=== PATIENT | male | born 1950 | race African-American/Black ===

== ENCOUNTER 2017-08-04 22:37 | Emergency (ER) | payer OTHER ==
[2017-08-04 22:54] VITALS: TEMP 98; BMI 32.5
--- NOTE | 2017-08-05 00:01 | PDOC ---
History of Present Illness - General History Source: Patient, Family Exam Limitations: No Limitations - History of Present Illness Initial Comments: 08/05/17 00:25 The patient is a 66 year old male, with a significant past medical history of hypertension, DM, prostate cancer, who presents to the emergency department for , evaluation of elevated blood pressure. The patient reports he is currently unemployed but reports to a [facility] clinic. The patient reports that last week he had blood test performed for his DM and while at the clinic was told that his blood pressure is highly elevated. The patient reports he was prescribed medications Cozaar and Glucophage which arrived in the mail yesterday. The patient reports that today prior to arrival he checked his blood pressure and noted the blood pressure was again very high. The patient reports he took his blood pressure medications with minimal relief and so his family advised him to come to the ED for evaluation. He denies any recent fevers, chills, headache or dizziness. He denies any recent nausea, vomit, diarrhea or constipation. He denies any recent chest pain , palpitations or shortness of breath. He denies recent swelling or calf tenderness. Allergies: NKDA, Shrimp <Brigido Chandler - Last Filed: 08/05/17 00:41> <Lida Robledo - Last Filed: 08/05/17 01:28> - General Chief Complaint: Blood Pressure Problem Stated Complaint: BLOOD PRESSURE Time Seen by Provider: 08/04/17 23:33 Past History <Brigido Chandler - Last Filed: 08/05/17 00:41> - Past Medical History COPD: No Diabetes: Yes (2) HTN: Yes - Immunization History Immunization Up to Date: Yes - Suicide/Smoking/Psychosocial Hx Smoking Status: No Smoking History: Never smoked Number of Cigarettes Smoked Daily: 0 Hx Alcohol Use: No <Lida Robledo - Last Filed: 08/05/17 01:28> - Past Medical History Allergies/Adverse Reactions: Allergies Allergy/AdvReac Type Severity Reaction Status Date / Time No Known Drug Allergies Allergy Verified 08/05/17 00:24 SHRIMP Allergy Severe Hives Uncoded 08/04/17 22:46 Home Medications: Ambulatory Orders Aspirin 81 mg PO DAILY 08/04/17 Cholecalciferol (Vitamin D3) [Vitamin D3 -] 800 unit PO DAILY 08/04/17 Losartan Potassium [Cozaar -] 50 mg PO DAILY 08/04/17 Metformin HCl [Glucophage -] 500 mg PO BID 08/04/17 Review of Systems - Review of Systems Comments:: 08/05/17 00:29 GENERAL/CONSTITUTIONAL: No fever or chills. No weakness. HEAD, EYES, EARS, NOSE AND THROAT: No change in vision. No ear pain or discharge. No sore throat. CARDIOVASCULAR: No chest pain or shortness of breath. RESPIRATORY: No cough, wheezing, or hemoptysis. GASTROINTESTINAL: No nausea, vomiting, diarrhea or constipation. GENITOURINARY: No dysuria, frequency, or change in urination. MUSCULOSKELETAL: No joint or muscle swelling or pain. No neck or back pain. SKIN: No rash NEUROLOGIC: No headache, vertigo, loss of consciousness, or change in strength/ sensation. ENDOCRINE: No increased thirst. No abnormal weight change. HEMATOLOGIC/LYMPHATIC: No anemia, easy bleeding, or history of blood clots. ALLERGIC/IMMUNOLOGIC: No hives or skin allergy. <Brigido Chandler - Last Filed: 08/05/17 00:41> *Physical Exam - Vital Signs Last Vital Signs Temp Pulse Resp BP Pulse Ox 98 F 87 18 206/100 98 08/04/17 22:53 08/04/17 22:53 08/04/17 22:53 08/04/17 22:53 08/04/17 22:53 - Physical Exam Comments: 08/05/17 00:29 GENERAL: Awake, alert, and fully oriented, in no acute distress HEAD: No signs of trauma EYES: PERRLA, EOMI, sclera anicteric, conjunctiva clear ENT: Auricles normal inspection, hearing grossly normal, nares patent, oropharynx clear without exudates. Moist mucosa NECK: Normal ROM, supple, no lymphadenopathy, JVD, or masses LUNGS: Breath sounds equal, clear to auscultation bilaterally. No wheezes, and no crackles HEART: Regular rate and rhythm, normal S1 and S2, no murmurs, rubs or gallops ABDOMEN: Soft, nontender, normoactive bowel sounds. No guarding, no rebound. No masses EXTREMITIES: Normal range of motion, no edema. No clubbing or cyanosis. No cords, erythema, or tenderness NEUROLOGICAL: Cranial nerves II through XII grossly intact. Normal speech, normal gait SKIN: Warm, Dry, normal turgor, no rashes or lesions noted. <Brigido Chandler - Last Filed: 08/05/17 00:41> - Vital Signs Last Vital Signs Temp Pulse Resp BP Pulse Ox 98 F 87 18 206/100 98 08/04/17 22:53 08/04/17 22:53 08/04/17 22:53 08/04/17 22:53 08/04/17 22:53 <Lida Robledo - Last Filed: 08/05/17 01:28> ED Treatment Course - LABORATORY CBC & Chemistry Diagram: 08/05/17 00:32 08/05/17 00:32 <Brigido Chandler - Last Filed: 08/05/17 00:41> - LABORATORY CBC & Chemistry Diagram: 08/05/17 00:32 08/05/17 00:32 <Lida Robledo - Last Filed: 08/05/17 01:28> Medical Decision Making - Medical Decision Making 08/05/17 01:03 CBC is normal and CXR is normal. chem and EKG is pending <Lida Robledo - Last Filed: 08/05/17 01:28> *DC/Admit/Observation/Transfer - Attestations Scribe Attestion: 08/05/17 00:30 Documentation prepared by Brigido Chandler, acting as medical collections for Lida Robledo MD. <Brigido Chandler - Last Filed: 08/05/17 00:41> - Discharge Dispostion Admit: No <Lida Robledo - Last Filed: 08/05/17 01:28> Diagnosis at time of Disposition: Hypertensive urgency - Discharge Dispostion Disposition: HOME Condition at time of disposition: Improved - Patient Instructions Printed Discharge Instructions: DI for High Blood Pressure, How to Monitor Your Blood Pressure at Home
[2017-08-05] MEDS ORDERED: NITROGLYCERIN SUBLINGUAL 1/150 0.4 MG TAB SL ONE (00:16)
[2017-08-05] MEDS ORDERED: ASPIRIN 81 MG CHEWABLE TABLETS PO ONE (00:22)
[2017-08-05 00:41] LABS: BASO % 0.7 % (0-2.0); EOS % 8.7 % (0-4.5); HEMOGLOBIN 13.7 GM/dL (11.7-16.9); LYMPH % 35.7 % (8-40); MCH 28.3 pg (25.7-33.7); MCHC 33.3 g/dl (32.0-35.9); MEAN CELL VOLUME 85.1 fl (80-96); MEAN PLT VOLUME 6.8 fl (7.5-11.1); MONO % 6.4 % (3.8-10.2); NEUT % 48.5 % (42.8-82.8); PLATELET COUNT 287 K/MM3 (134-434); RBC 4.82 M/mm3 (4.00-5.60); WHITE BLOOD COUNT 5.1 K/mm3 (4.0-10.0)
[2017-08-05] MEDS ORDERED: ASPIRIN 81 MG CHEWABLE TABLETS ONE (01:03)
[2017-08-05] MEDS ORDERED: NITROGLYCERIN SUBLINGUAL 1/150 0.4 MG TAB ONE (01:04)
[2017-08-05 01:09] LABS: ALBUMIN 4.1 g/dl (3.4-5.0); ANION GAP 7 (8-16); BLOOD UREA NITROGEN 14 mg/dL (7-18); CALCIUM 9.1 mg/dL (8.5-10.1); CHLORIDE 101 mmol/L (98-107); CO2 31 mmol/L (21-32); CREATININE 0.9 mg/dL (0.7-1.3); GLUCOSE,RANDOM 115 mg/dL (74-106); POTASSIUM 4.1 mmol/L (3.5-5.1); SGOT/AST 19 U/L (15-37); SGPT/ALT 29 U/L (12-78); SODIUM 139 mmol/L (136-145)
[2017-08-05 01:12] LABS: URINE APPEARANCE CLEAR; URINE BILIRUBIN NEGATIVE (NEGATIVE); URINE BLOOD 1+ (NEGATIVE); URINE COLOR YELLOW; URINE GLUCOSE (UA) NEGATIVE (NEGATIVE); URINE KETONE NEGATIVE (NEGATIVE); URINE LEUK ESTERASE NEGATIVE (NEGATIVE); URINE NITRITE NEGATIVE (NEGATIVE); URINE PROTEIN NEGATIVE (NEGATIVE); URINE UROBILINOGEN NEGATIVE mg/dL (0.2-1.0)
[2017-08-05 01:13] LABS: ALK PHOS 81 U/L (45-117); BILIRUBIN,TOTAL 0.3 mg/dL (0.2-1.0); TOT PROT 7.6 g/dl (6.4-8.2)
[2017-08-05 01:19] LABS: EPI CELLS RARE /HPF (FEW); URINE MUCUS MODERATE
[2017-08-05 01:20] LABS: INR 0.96 (0.82-1.09); PROTHROMBIN TIME (PATIENT) 10.8 SEC (9.98-11.88)
[2017-08-05 01:59] VITALS: BP 122/91; PULSE 74
== END 2017-08-05 01:38 | disposition home or self-care (01) ==
LOC: JER 22:37
DX: I16.0 Hypertensive urgency (principal); Z79.84 Long term (current) use of oral hypoglycemic drugs; Z85.46 Personal history of malignant neoplasm of prostate
CPT/HCPCS: 36415; 71046-TC; 80053; 81003; 81015; 82550; 84484; 85025; 85610; 99282-25

== ENCOUNTER 2020-12-24 09:25 | Inpatient (IN) | payer OTHER ==
[2020-12-24] MEDS ORDERED: LACTATED RINGERS SOLUTION 1000 ML INFUS.BAG IV ONE ×2 (09:54→11:07)
[2020-12-24 10:31] LABS: VENOUS BASE EXCESS -2.2 mmol/L (-2-2); VENOUS O2 SATURATION 41.9 % (70-80); VENOUS PCO2 56.7 mmHg (38-52); VENOUS PH 7.275 (7.310-7.410)
[2020-12-24 10:37] LABS: BASO % 0.6 % (0-2.0); EOS % 0.1 % (0-4.5); HEMATOCRIT 42.1 % (35.4-49); HEMOGLOBIN 13.9 GM/dL (11.7-16.9); LYMPH % 21.3 % (8-40); MCH 29.1 pg (25.7-33.7); MEAN CELL VOLUME 88.3 fl (80-96); MEAN PLT VOLUME 8.5 fl (7.5-11.1); PLATELET COUNT 266 K/MM3 (134-434); RBC 4.77 M/mm3 (4.00-5.60); RDW 12.8 % (11.9-15.9); WHITE BLOOD COUNT 6.4 K/mm3 (4.0-10.0)
[2020-12-24 10:51] LABS: CHLORIDE 100 mmol/L (98-107); SODIUM 144 mmol/L (136-145)
[2020-12-24 10:53] LABS: CALCIUM 11.5 mg/dL (8.5-10.1)
[2020-12-24 10:54] LABS: ALBUMIN 4.6 g/dl (3.4-5.0); ANION GAP 18 MMOL/L (8-16); BLOOD UREA NITROGEN 38.6 mg/dL (7-18); CO2 26 mmol/L (21-32); MAGNESIUM 3.3 mg/dL (1.8-2.4)
[2020-12-24 10:57] LABS: CREATININE 2.4 mg/dL (0.55-1.3); PHOSPHOROUS 6.8 mg/dL (2.5-4.9); SGOT/AST 19 U/L (15-37); SGPT/ALT 29 U/L (13-61)
[2020-12-24 10:58] LABS: BILIRUBIN,TOTAL 0.5 mg/dL (0.2-1); TOT PROT 8.2 g/dl (6.4-8.2)
[2020-12-24 11:00] LABS: ALK PHOS 81 U/L (45-117)
[2020-12-24 11:05] LABS: GLUCOSE,RANDOM 715 mg/dL (74-106)
[2020-12-24 11:26] LABS: LACTIC ACID 2.8 mmol/L (0.4-2.0)
[2020-12-24 11:29] LABS: EPI CELLS 22 /uL (0-25.1); HYALINE CASTS 2 /uL (0-3.1); URINE APPEARANCE CLEAR; URINE BACTERIA 22 /uL (0-1359); URINE BILIRUBIN NEGATIVE (NEGATIVE); URINE COLOR YELLOW; URINE GLUCOSE (UA) 3+ (NEGATIVE); URINE KETONE 2+ (NEGATIVE); URINE LEUK ESTERASE NEGATIVE (NEGATIVE); URINE NITRITE NEGATIVE (NEGATIVE); URINE PROTEIN NEGATIVE (NEGATIVE); URINE RBC 15 /uL (0-23.9); URINE UROBILINOGEN 0.2 mg/dL (0.2-1.0); URINE WBC 6 /uL (0-25.8)
[2020-12-24] MEDS ORDERED: INSULIN REGULAR HUMAN 100 UNITS/ML *VIAL* (FOR IVP) IVPUSH ONE (11:50)
[2020-12-24] MEDS ORDERED: INSULIN REGULAR 100 UNITS in SODIUM CHLORIDE 99 ML IVPB SCH ×2 (12:00→16:45)
[2020-12-24] MEDS ORDERED: SODIUM CHLORIDE 1,000 ML IV SCH ×2 (12:15→14:07)
[2020-12-24 16:14] VITALS: BMI 29.1
[2020-12-24] MEDS ORDERED: DEXTROSE 50%-WATER - 25 GM/50 ML VIAL IVPUSH PRN (16:31)
[2020-12-24 16:52] LABS: CALCIUM 10.5 mg/dL (8.5-10.1)
[2020-12-24] MEDS: ELECTROLYTE-148 SOLN 1,000 ML IV SCH (16:52)
[2020-12-24 16:53] LABS: BLOOD UREA NITROGEN 32.4 mg/dL (7-18)
[2020-12-24 16:56] LABS: CREATININE 1.9 mg/dL (0.55-1.3)
[2020-12-24 17:01] LABS: LACTIC ACID 2.2 mmol/L (0.4-2.0)
[2020-12-24] MEDS: KCL 10 MEQ IVPB 10 MEQ/100 ML INFUS.BAG IVPB SCH ×2 (17:25→18:06)
[2020-12-24] MEDS ORDERED: INSULIN (LEVEMIR) 100 UNITS/ML UNITS SQ ONE (17:53)
[2020-12-24] MEDS ORDERED: CHLORHEXIDINE GLUCONATE 4% CLEANSER FOR DECOLONIZATION TP SCH (22:00)
[2020-12-24] MEDS: INSULIN SLIDING SCALE (NOVOLOG) 1 VIAL SQ SCH (22:00)
[2020-12-24] MEDS: MUPIROCIN 2% TOPICAL OINTMENT FOR DECOLONIZATION NS SCH (22:01)
[2020-12-24 23:44] LABS: CALCIUM 10.1 mg/dL (8.5-10.1)
[2020-12-24 23:45] LABS: BLOOD UREA NITROGEN 26.4 mg/dL (7-18)
[2020-12-24 23:48] LABS: CREATININE 1.9 mg/dL (0.55-1.3)
[2020-12-25] MEDS: ELECTROLYTE-148 SOLN 1,000 ML IV SCH (00:31)
[2020-12-25] MEDS: INSULIN SLIDING SCALE (NOVOLOG) 1 VIAL SQ SCH ×4 (06:44→21:59)
[2020-12-25 07:06] LABS: BASO % 0.5 % (0-2.0); EOS % 0.6 % (0-4.5); HEMOGLOBIN 12.9 GM/dL (11.7-16.9); LYMPH % 26.1 % (8-40); MCH 28.8 pg (25.7-33.7); MCHC 33.1 g/dl (32.0-35.9); MEAN CELL VOLUME 87.1 fl (80-96); MEAN PLT VOLUME 8.4 fl (7.5-11.1); MONO % 6.7 % (3.8-10.2); NEUT % 66.1 % (42.8-82.8); PLATELET COUNT 217 K/MM3 (134-434); RBC 4.48 M/mm3 (4.00-5.60); RDW 12.7 % (11.9-15.9); WHITE BLOOD COUNT 5.8 K/mm3 (4.0-10.0)
[2020-12-25 07:20] LABS: MAGNESIUM 2.6 mg/dL (1.8-2.4)
[2020-12-25 07:23] LABS: PHOSPHOROUS 3.6 mg/dL (2.5-4.9)
[2020-12-25 08:25] LABS: CALCIUM 10.2 mg/dL (8.5-10.1)
[2020-12-25 08:26] LABS: ALBUMIN 3.9 g/dl (3.4-5.0); BLOOD UREA NITROGEN 26.8 mg/dL (7-18)
[2020-12-25 08:29] LABS: CREATININE 1.8 mg/dL (0.55-1.3)
[2020-12-25 08:30] LABS: BILIRUBIN,TOTAL 0.4 mg/dL (0.2-1)
[2020-12-25] MEDS ORDERED: SODIUM CHLORIDE 0.45% 1,000 ML IV SCH (09:15)
[2020-12-25] MEDS: MUPIROCIN 2% TOPICAL OINTMENT FOR DECOLONIZATION NS SCH (09:40)
[2020-12-25] MEDS ORDERED: INSULIN (LEVEMIR) 100 UNITS/ML UNITS SQ SCH ×2 (10:00→22:00)
[2020-12-25 10:08] LABS: INR 0.94 (0.83-1.09); PROTHROMBIN TIME (PATIENT) 11.6 SEC (9.7-13.0)
[2020-12-25 10:11] LABS: ACTIVATED PTT 22.6 SECONDS (25.2-36.5)
[2020-12-25] MEDS ORDERED: DEXTROSE 50%-WATER - 25 GM/50 ML VIAL IVPUSH PRN (19:09)
[2020-12-25] MEDS: SODIUM CHLORIDE 0.45% 1,000 ML IV SCH (21:56)
[2020-12-25] MEDS: INSULIN (LEVEMIR) 100 UNITS/ML UNITS SQ SCH (22:01)
[2020-12-26] MEDS: INSULIN SLIDING SCALE (NOVOLOG) 1 VIAL SQ SCH ×4 (06:08→21:27)
[2020-12-26] MEDS: SODIUM CHLORIDE 0.45% 1,000 ML IV SCH ×4 (06:15→23:58)
[2020-12-26 07:42] LABS: BASO % 0.5 % (0-2.0); EOS % 2.2 % (0-4.5); HEMATOCRIT 36.3 % (35.4-49); HEMOGLOBIN 12.1 GM/dL (11.7-16.9); LYMPH % 41.5 % (8-40); MCH 28.7 pg (25.7-33.7); MCHC 33.3 g/dl (32.0-35.9); MEAN CELL VOLUME 86.3 fl (80-96); MEAN PLT VOLUME 8.5 fl (7.5-11.1); NEUT % 48.8 % (42.8-82.8); PLATELET COUNT 170 K/MM3 (134-434); RDW 12.4 % (11.9-15.9); WHITE BLOOD COUNT 4.2 K/mm3 (4.0-10.0)
[2020-12-26 08:02] LABS: CALCIUM 9.2 mg/dL (8.5-10.1)
[2020-12-26 08:03] LABS: ALBUMIN 3.3 g/dl (3.4-5.0); BLOOD UREA NITROGEN 12.3 mg/dL (7-18); MAGNESIUM 2.1 mg/dL (1.8-2.4)
[2020-12-26 08:06] LABS: CREATININE 1.2 mg/dL (0.55-1.3); PHOSPHOROUS 3.4 mg/dL (2.5-4.9)
[2020-12-26 08:07] LABS: BILIRUBIN,TOTAL 0.4 mg/dL (0.2-1)
[2020-12-26 08:08] LABS: TOT PROT 5.9 g/dl (6.4-8.2)
[2020-12-26] MEDS: INSULIN (LEVEMIR) 100 UNITS/ML UNITS SQ SCH ×2 (10:43→21:29)
[2020-12-27] MEDS: INSULIN SLIDING SCALE (NOVOLOG) 1 VIAL SQ SCH ×3 (06:16→16:48)
[2020-12-27] MEDS: SODIUM CHLORIDE 0.45% 1,000 ML IV SCH (06:44)
[2020-12-27 10:22] LABS: HEMATOCRIT 33.6 % (35.4-49); HEMOGLOBIN 11.2 GM/dL (11.7-16.9); MCH 28.8 pg (25.7-33.7); MCHC 33.4 g/dl (32.0-35.9); MEAN CELL VOLUME 86.2 fl (80-96); MEAN PLT VOLUME 8.4 fl (7.5-11.1); PLATELET COUNT 133 10^3/uL (134-434); RDW 12.4 % (11.9-15.9); WHITE BLOOD COUNT 3.4 K/mm3 (4.0-10.0)
[2020-12-27 10:36] LABS: CALCIUM 8.9 mg/dL (8.5-10.1)
[2020-12-27 10:37] LABS: ALBUMIN 3.2 g/dl (3.4-5.0); BLOOD UREA NITROGEN 9.1 mg/dL (7-18)
[2020-12-27 10:40] LABS: CREATININE 1.1 mg/dL (0.55-1.3); PHOSPHOROUS 3.1 mg/dL (2.5-4.9)
[2020-12-27 10:41] LABS: BILIRUBIN,TOTAL 0.5 mg/dL (0.2-1); TOT PROT 5.7 g/dl (6.4-8.2)
[2020-12-27] MEDS: INSULIN (LEVEMIR) 100 UNITS/ML UNITS SQ SCH (10:58)
[2020-12-27] MEDS ORDERED: INSULIN (NOVOLOG) ASPART 100 UNITS/ML 10ML VIAL ONE (11:04)
[2020-12-27] MEDS: KCL 10 MEQ IVPB 10 MEQ/100 ML INFUS.BAG IVPB SCH ×3 (14:52→17:14)
[2020-12-27 15:35] VITALS: BP 143/71; PULSE 91; TEMP 98.8
[2020-12-27] MEDS ORDERED: POTASSIUM CHLORIDE TABS 20 MEQ TABLET.ER (FP) PO ONE (15:38)
== END 2020-12-27 18:34 | disposition home or self-care (01) | DRG 638 ==
LOC: JER 09:25 → JERBED 11:35 → JICU 12:38 → J8W 12-25 18:49
PROVIDERS: ATTEND Internal Medicine
DX: E11.10 Type 2 diabetes mellitus with ketoacidosis without coma (principal); N17.9 Acute kidney failure, unspecified; B37.0 Candidal stomatitis; E87.2 Acidosis; R63.4 Abnormal weight loss; E66.9 Obesity, unspecified; Z68.30 Body mass index [BMI] 30.0-30.9, adult; I10 Essential (primary) hypertension; E78.5 Hyperlipidemia, unspecified
CPT/HCPCS: 36415; 71045-TC-FY; 80048; 80053; 81003; 82010; 82150; 82550; 82553; 82803; 82962; 83036; 83605; 83690; 83735; 84100; 84436; 84443; 84479; 84484; 85025; 85027; 85610; 85730; 87086; 93005; 93010; 99291; C9803; U0003; U0005

== ENCOUNTER 2021-01-16 19:39 | Emergency (ER) | payer OTHER ==
[2021-01-16 19:48] VITALS: BMI 33.3
[2021-01-16 22:11] LABS: HEMATOCRIT 30.4 % (35.4-49); HEMOGLOBIN 10.2 GM/dL (11.7-16.9); MCH 29.1 pg (25.7-33.7); MCHC 33.5 g/dl (32.0-35.9); MEAN CELL VOLUME 86.6 fl (80-96); MEAN PLT VOLUME 6.7 fl (7.5-11.1); PLATELET COUNT 289 10^3/uL (134-434); RBC 3.51 M/mm3 (4.00-5.60); RDW 13.6 % (11.9-15.9); WHITE BLOOD COUNT 3.6 K/mm3 (4.0-10.0)
[2021-01-16 22:17] LABS: VENOUS O2 SATURATION 97.5 % (70-80); VENOUS PCO2 40.3 mmHg (38-52); VENOUS PH 7.434 (7.310-7.410)
[2021-01-16 22:30] LABS: CHLORIDE 107 mmol/L (98-107); SODIUM 141 mmol/L (136-145)
[2021-01-16 22:32] LABS: CALCIUM 8.9 mg/dL (8.5-10.1)
[2021-01-16 22:33] LABS: ALBUMIN 3.6 g/dl (3.4-5.0); ANION GAP 5 MMOL/L (8-16); BLOOD UREA NITROGEN 10.6 mg/dL (7-18); CO2 29 mmol/L (21-32); GLUCOSE,RANDOM 85 mg/dL (74-106)
[2021-01-16 22:36] LABS: CREATININE 0.9 mg/dL (0.55-1.3); SGOT/AST 27 U/L (15-37); SGPT/ALT 30 U/L (13-61)
[2021-01-16 22:38] LABS: BILIRUBIN,TOTAL 0.3 mg/dL (0.2-1); TOT PROT 6.5 g/dl (6.4-8.2)
[2021-01-16 22:39] LABS: ALK PHOS 51 U/L (45-117)
[2021-01-16 22:41] LABS: N-TERMINAL BNP 138.2 pg/ml (5-125)
[2021-01-16] MEDS ORDERED: FUROSEMIDE 40 MG/4 ML INJECTABLE VIAL IVPUSH ONE (23:24)
[2021-01-16 23:38] VITALS: TEMP 97.6
[2021-01-17 00:32] VITALS: BP 154/91; PULSE 65
== END 2021-01-17 00:37 | disposition home or self-care (01) ==
LOC: JER 19:39
PROC: 3E033GC Introduction of Other Therapeutic Substance into Peripheral Vein, Percutaneous Approach (ICD-10-PCS; principal; 2021-01-16)
DX: R60.0 Localized edema (principal)
CPT/HCPCS: 36415; 71045-TC-FY; 80053; 82803; 83605; 83880; 84484; 85027; 93005; 93010; 93970-TC; 99285-25

== ENCOUNTER 2021-12-23 13:10 | Inpatient (IN) | payer OTHER ==
[2021-12-23] MEDS ORDERED: ACETAMINOPHEN 1000 MG/100 ML BAG IVPB ONE (15:04)
[2021-12-23] MEDS ORDERED: SODIUM CHLORIDE 0.9% 500 ML INFUS.BAG IV ONE ×2 (15:04→21:28)
[2021-12-23] MEDS ORDERED: ACETAMINOPHEN INJECTION 100 ML IVPB ONE (16:26)
[2021-12-23 16:33] LABS: HEMATOCRIT 37.3 % (35.4-49); HEMOGLOBIN 12.4 GM/dL (11.7-16.9); MCH 28.1 pg (25.7-33.7); MCHC 33.2 g/dl (32.0-35.9); MEAN CELL VOLUME 84.6 fl (80-96); PLATELET COUNT 255 10^3/uL (134-434); RBC 4.41 M/mm3 (4.00-5.60); RDW 14.1 % (11.9-15.9); WHITE BLOOD COUNT 7.2 K/mm3 (4.0-10.0)
[2021-12-23 16:59] LABS: CALCIUM 9.9 mg/dL (8.5-10.1)
[2021-12-23 17:00] LABS: ALBUMIN 4.1 g/dl (3.4-5.0); BLOOD UREA NITROGEN 16.9 mg/dL (7-18); MAGNESIUM 2.2 mg/dL (1.8-2.4)
[2021-12-23 17:03] LABS: CREATININE 1.7 mg/dL (0.55-1.3)
[2021-12-23 17:04] LABS: BILIRUBIN,TOTAL 0.4 mg/dL (0.2-1); TOT PROT 7.3 g/dl (6.4-8.2)
[2021-12-23 19:44] LABS: EPI CELLS 2 /uL (0-25.1); HYALINE CASTS 0 /uL (0-3.1); PH,URINE 5.5 (5.0-8.0); URINE APPEARANCE CLEAR; URINE BACTERIA 1 /uL (0-1359); URINE BILIRUBIN NEGATIVE (NEGATIVE); URINE COLOR YELLOW; URINE GLUCOSE (UA) NEGATIVE (NEGATIVE); URINE KETONE NEGATIVE (NEGATIVE); URINE LEUK ESTERASE NEGATIVE (NEGATIVE); URINE NITRITE NEGATIVE (NEGATIVE); URINE PROTEIN NEGATIVE (NEGATIVE); URINE RBC 21 /uL (0-23.9); URINE UROBILINOGEN 0.2 mg/dL (0.2-1.0); URINE WBC 4 /uL (0-25.8)
[2021-12-23] MEDS ORDERED: oxyCODONE HCL 5 MG TABLET PO ONE (21:37)
[2021-12-23] MEDS ORDERED: oxyCODONE HCL 5 MG TABLET ONE (21:44)
[2021-12-23] MEDS ORDERED: TAMSULOSIN HCL 0.4 MG CAP PO ONE (22:07)
[2021-12-23] MEDS ORDERED: SODIUM CHLORIDE 1,000 ML IV SCH (22:45)
[2021-12-23] MEDS ORDERED: CEFTRIAXONE 1 GM in DEXTROSE 5%-WATER - 50 ML IVPB ONE (22:48)
[2021-12-23] MEDS ORDERED: TAMSULOSIN HCL 0.4 MG CAP ONE (23:07)
[2021-12-23] MEDS ORDERED: CEFTRIAXONE 1 GM/50 ML BAG ONE (23:07)
[2021-12-23] MEDS: HEPARIN NA (PORCINE) 5,000 UNITS/ML 1ML VIAL SQ SCH (23:17)
[2021-12-24 04:34] VITALS: BMI 32.3
[2021-12-24] MEDS: HEPARIN NA (PORCINE) 5,000 UNITS/ML 1ML VIAL SQ SCH ×3 (07:58→21:58)
[2021-12-24] MEDS: INSULIN SLIDING SCALE (NOVOLOG) 1 VIAL SQ SCH ×4 (07:58→21:58)
[2021-12-24 08:22] LABS: HEMATOCRIT 32.4 % (35.4-49); HEMOGLOBIN 11.2 GM/dL (11.7-16.9); INR 1.09 (0.83-1.09); MCH 28.8 pg (25.7-33.7); MCHC 34.5 g/dl (32.0-35.9); MEAN CELL VOLUME 83.6 fl (80-96); MEAN PLT VOLUME 7.2 fl (7.5-11.1); PLATELET COUNT 213 10^3/uL (134-434); PROTHROMBIN TIME (PATIENT) 12.5 SEC (9.7-13.0); RBC 3.88 M/mm3 (4.00-5.60); RDW 13.7 % (11.9-15.9); WHITE BLOOD COUNT 6.9 K/mm3 (4.0-10.0)
[2021-12-24 08:35] LABS: ALBUMIN 3.5 g/dl (3.4-5.0); BLOOD UREA NITROGEN 14.2 mg/dL (7-18); CALCIUM 8.8 mg/dL (8.5-10.1); MAGNESIUM 1.8 mg/dL (1.8-2.4)
[2021-12-24 08:38] LABS: CREATININE 1.6 mg/dL (0.55-1.3); PHOSPHOROUS 3.3 mg/dL (2.5-4.9)
[2021-12-24 08:39] LABS: BILIRUBIN,TOTAL 0.6 mg/dL (0.2-1); TOT PROT 6.6 g/dl (6.4-8.2)
[2021-12-24] MEDS: LOSARTAN POTASSIUM 50 MG TABLET PO SCH (10:02)
[2021-12-24] MEDS: TAMSULOSIN HCL 0.4 MG CAP PO SCH (10:02)
[2021-12-24] MEDS: SODIUM CHLORIDE 1,000 ML IV SCH ×2 (12:10→21:58)
[2021-12-24] MEDS ORDERED: ROSUVASTATIN CA 20 MG TABLET PO SCH (22:00)
[2021-12-24] MEDS ORDERED: INSULIN (LEVEMIR) 100 UNITS/ML UNITS SQ SCH (22:00)
[2021-12-25] MEDS: HEPARIN NA (PORCINE) 5,000 UNITS/ML 1ML VIAL SQ SCH (06:09)
[2021-12-25] MEDS: INSULIN SLIDING SCALE (NOVOLOG) 1 VIAL SQ SCH ×2 (06:10→11:24)
[2021-12-25] MEDS: LOSARTAN POTASSIUM 50 MG TABLET PO SCH (09:25)
[2021-12-25] MEDS: TAMSULOSIN HCL 0.4 MG CAP PO SCH (09:25)
[2021-12-25] MEDS ORDERED: INSULIN (NOVOLOG) ASPART 100 UNITS/ML 10ML VIAL ONE (10:04)
[2021-12-25 12:59] VITALS: BP 167/84; PULSE 65; TEMP 98
[2021-12-25 13:47] LABS: ALBUMIN 3.9 g/dl (3.4-5.0); BLOOD UREA NITROGEN 15.1 mg/dL (7-18); CALCIUM 9.3 mg/dL (8.5-10.1)
[2021-12-25 13:50] LABS: CREATININE 1.1 mg/dL (0.55-1.3)
[2021-12-25 13:52] LABS: BILIRUBIN,TOTAL 0.3 mg/dL (0.2-1); TOT PROT 7.3 g/dl (6.4-8.2)
== END 2021-12-25 13:17 | disposition left against medical advice (07) | DRG 694 ==
LOC: JER 13:10 → JERBED 22:06 → J8W 12-24 03:39
PROVIDERS: ADMIT Internal Medicine
DX: N13.2 Hydronephrosis with renal and ureteral calculous obstruction (principal); N13.4 Hydroureter; N17.9 Acute kidney failure, unspecified; I10 Essential (primary) hypertension; E78.5 Hyperlipidemia, unspecified; E11.9 Type 2 diabetes mellitus without complications; E66.9 Obesity, unspecified; Z68.32 Body mass index [BMI] 32.0-32.9, adult
CPT/HCPCS: 36415; 74176-TC; 76775-TC; 80053; 81003; 82962; 83605; 83735; 83970; 84100; 85027; 85610; 87086; 93005; 93010; 99285-25; C9803-CS; J1644; U0003; U0005

== ENCOUNTER 2024-09-07 21:37 | Inpatient (IN) | payer OTHER ==
[2024-09-07] MEDS ORDERED: INSULIN REGULAR HUMAN 100 UNITS/ML *VIAL ONE (22:14)
[2024-09-07 22:21] LABS: BASO % 0.7 % (0-2.0); EOS % 0.8 % (0-4.5); HEMATOCRIT 39.5 % (35.4-49); HEMOGLOBIN 13.3 GM/dL (11.7-16.9); LYMPH % 26.2 % (8-40); MCH 28.9 pg (25.7-33.7); MCHC 33.7 g/dl (32.0-35.9); MEAN CELL VOLUME 85.7 fl (80-96); MEAN PLT VOLUME 7.8 fl (7.5-11.1); MONO % 6.9 % (3.8-10.2); NEUT % 65.4 % (42.8-82.8); PLATELET COUNT 273 10^3/uL (134-434); RBC 4.61 M/mm3 (4.00-5.60); RDW 12.9 % (11.9-15.9); WHITE BLOOD COUNT 5.4 K/mm3 (4.0-10.0)
[2024-09-07] MEDS: LACTATED RINGERS SOLUTION 1000 ML INFUS.BAG IV ONE (22:25)
[2024-09-07] MEDS: INSULIN REGULAR HUMAN 100 UNITS/ML *VIAL SQ ONE (22:34)
[2024-09-07] MEDS: INSULIN REGULAR HUMAN 100 UNITS/ML *VIAL IVPUSH ONE (22:34)
[2024-09-07 22:57] LABS: VENOUS BASE EXCESS -0.4 mmol/L (-2-2); VENOUS O2 SATURATION 95.1 % (70-80); VENOUS PCO2 44.6 mmHg (38-52); VENOUS PH 7.37 (7.310-7.410)
[2024-09-07 23:29] LABS: CHLORIDE 94 mmol/L (98-107); POTASSIUM 4.9 mmol/L (3.5-5.1); SODIUM 132 mmol/L (136-145)
[2024-09-07 23:32] LABS: ALBUMIN 4.4 g/dl (3.4-5.0); ANION GAP 8 mmol/L (4-13); BLOOD UREA NITROGEN 20.6 mg/dL (7-18); CO2 29 mmol/L (21-32); MAGNESIUM 2.5 mg/dL (1.8-2.4)
[2024-09-07 23:35] LABS: CREATININE 1.7 mg/dL (0.55-1.3); PHOSPHOROUS 3.8 mg/dL (2.5-4.9); SGOT/AST 27 U/L (15-37); SGPT/ALT 27 U/L (13-61)
[2024-09-07 23:36] LABS: BILIRUBIN,TOTAL 0.4 mg/dL (0.2-1); TOT PROT 7.9 g/dl (6.4-8.2)
[2024-09-07 23:37] LABS: GLUCOSE,RANDOM 829 mg/dL (74-106)
[2024-09-07 23:38] LABS: ALK PHOS 137 U/L (45-117)
[2024-09-08 00:46] LABS: URINE APPEARANCE CLEAR; URINE BILIRUBIN NEGATIVE (NEGATIVE); URINE COLOR YELLOW; URINE GLUCOSE (UA) 3+ (NEGATIVE); URINE KETONE NEGATIVE (NEGATIVE); URINE LEUK ESTERASE NEGATIVE (NEGATIVE); URINE NITRITE NEGATIVE (NEGATIVE); URINE PROTEIN NEGATIVE (NEGATIVE); URINE UROBILINOGEN 0.2 mg/dL (0.2-1.0)
[2024-09-08] MEDS: LACTATED RINGERS SOLUTION 1000 ML INFUS.BAG IV ONE (01:06)
[2024-09-08] MEDS: INSULIN (LEVEMIR) 100 UNITS/ML UNITS SQ ONE (01:58)
[2024-09-08 06:18] LABS: BASO % 0.6 % (0-2.0); EOS % 2.4 % (0-4.5); HEMATOCRIT 37.1 % (35.4-49); HEMOGLOBIN 12.6 GM/dL (11.7-16.9); LYMPH % 41.3 % (8-40); MCH 28.7 pg (25.7-33.7); MCHC 33.9 g/dl (32.0-35.9); MEAN CELL VOLUME 84.8 fl (80-96); MEAN PLT VOLUME 7.5 fl (7.5-11.1); MONO % 7.2 % (3.8-10.2); NEUT % 48.5 % (42.8-82.8); PLATELET COUNT 252 10^3/uL (134-434); RBC 4.37 M/mm3 (4.00-5.60); RDW 12.7 % (11.9-15.9); WHITE BLOOD COUNT 4.3 K/mm3 (4.0-10.0)
[2024-09-08 06:48] LABS: CALCIUM 9.6 mg/dL (8.5-10.1)
[2024-09-08 06:49] LABS: ALBUMIN 3.8 g/dl (3.4-5.0); BLOOD UREA NITROGEN 14.8 mg/dL (7-18)
[2024-09-08 06:52] LABS: CREATININE 1.2 mg/dL (0.55-1.3)
[2024-09-08 06:54] LABS: BILIRUBIN,TOTAL 0.6 mg/dL (0.2-1); TOT PROT 6.9 g/dl (6.4-8.2)
[2024-09-08] MEDS: INSULIN ASPART SLIDING SCALE (NOVOLOG) 1 VIAL SQ SCH (07:08)
[2024-09-08] MEDS: SODIUM CHLORIDE 1,000 ML IV SCH (10:39)
[2024-09-08 15:28] VITALS: BMI 30.5
[2024-09-08] MEDS: metFORMIN HCL 500 MG TABLET (FP) PO SCH (16:52)
[2024-09-08] MEDS ORDERED: INSULIN GLARGINE (LANTUS) 100 UNITS/ML UNITS SQ SCH (22:00)
[2024-09-08] MEDS: INSULIN (LEVEMIR) 100 UNITS/ML UNITS SQ SCH (22:18)
[2024-09-08] MEDS: ROSUVASTATIN CA 20 MG TABLET PO SCH (22:18)
[2024-09-09] MEDS: LOSARTAN POTASSIUM 50 MG TABLET PO SCH (09:37)
[2024-09-09] MEDS: INSULIN ASPART SLIDING SCALE (NOVOLOG) 1 VIAL SQ SCH (21:52)
[2024-09-09] MEDS: INSULIN (LEVEMIR) 100 UNITS/ML UNITS SQ SCH (21:53)
[2024-09-09] MEDS ORDERED: INSULIN (LEVEMIR) 100 UNITS/ML UNITS SQ SCH (22:00)
[2024-09-10] MEDS: metFORMIN HCL 500 MG TABLET (FP) PO SCH (06:51)
[2024-09-10 07:29] VITALS: BP 123/65; PULSE 57; RESP 18; TEMP 97.7
[2024-09-10 10:15] LABS: BASO % 0.3 % (0-2.0); EOS % 2.7 % (0-4.5); HEMATOCRIT 35.2 % (35.4-49); HEMOGLOBIN 12.3 GM/dL (11.7-16.9); MCH 29.3 pg (25.7-33.7); MCHC 34.9 g/dl (32.0-35.9); MEAN CELL VOLUME 83.9 fl (80-96); MEAN PLT VOLUME 7.7 fl (7.5-11.1); MONO % 6.6 % (3.8-10.2); NEUT % 60.4 % (42.8-82.8); PLATELET COUNT 202 10^3/uL (134-434); RBC 4.19 M/mm3 (4.00-5.60); RDW 12.8 % (11.9-15.9); WHITE BLOOD COUNT 4.8 K/mm3 (4.0-10.0)
[2024-09-10 11:14] LABS: POTASSIUM 3.8 mmol/L (3.5-5.1)
[2024-09-10 11:19] LABS: ALBUMIN 3.3 g/dl (3.4-5.0); BLOOD UREA NITROGEN 8.7 mg/dL (7-18); CALCIUM 8.9 mg/dL (8.5-10.1)
[2024-09-10 11:23] LABS: BILIRUBIN,TOTAL 0.5 mg/dL (0.2-1)
[2024-09-10 11:24] LABS: TOT PROT 6.1 g/dl (6.4-8.2)
== END 2024-09-10 11:56 | disposition home or self-care (01) | DRG 638 ==
LOC: JER 21:37 → JERBED 09-08 00:11 → J7W 09-08 06:23
PROVIDERS: ADMIT Student in an Organized Health Care Education/Training Program; ATTEND Internal Medicine
DX: E11.00 Type 2 diabetes mellitus with hyperosmolarity without nonketotic hyperglycemic-hyperosmolar coma (NKHHC) (principal); N17.9 Acute kidney failure, unspecified; E78.5 Hyperlipidemia, unspecified; I10 Essential (primary) hypertension; E86.0 Dehydration; N20.0 Calculus of kidney; E11.40 Type 2 diabetes mellitus with diabetic neuropathy, unspecified; R63.1 Polydipsia; E66.9 Obesity, unspecified; Z68.30 Body mass index [BMI] 30.0-30.9, adult; Z91.148 Patient's other noncompliance with medication regimen for other reason
CPT/HCPCS: 0241U-QW; 36415; 71045-TC-FY; 80053; 81003; 82010; 82803; 82962; 83036; 83735; 83930; 84100; 84484; 85025; 87086; 99285-25